=== PATIENT | male | born 1960 | race Caucasian/White ===

== ENCOUNTER 2022-06-07 10:16 | Outpatient (REF) | payer OTHER, SELFPAY ==
--- NOTE | ~2022-06-07 | XR_ITS ---
EXAMINATION: XR CHEST CLINICAL INFORMATION: Acute bronchitis COMPARISON: None TECHNIQUE: 2 views of the chest were obtained. FINDINGS: Status post median sternotomy. Heart size normal. The aorta is mildly unfolded. A small lingular infiltrate is present with obscuration of the left heart border. No other infiltrates or lung masses are seen. No pleural effusions. ACDF hardware noted. XR/XR chest 2V IMPRESSION: Lingular infiltrate consistent with pneumonia.
== END 2022-06-07 10:17 | disposition home or self-care (01) ==
LOC: HO.HMGCX 10:16
PROVIDERS: Visit Provider Internal Medicine
DX: J20.9 Acute bronchitis, unspecified (principal)
CPT/HCPCS: 71046

== ENCOUNTER 2023-11-18 10:32 | Outpatient (AMB) | payer OTHER, SELFPAY ==
--- NOTE | 2023-11-18 11:51 | MHC.OFFWIV ---
Intake Vital Signs 11/18/23 11:56 Height 5 ft 11 in Weight 200 lb BMI 27.9 BP 136/82 Blood Pressure Location Rt brachial Position Sitting Pulse 83 Pulse Source Pulse Oximeter Temp 97.8 F Temp Source Oral Pulse Oximetry (%) 97 Intake Visit Reasons: EP LT Leg pain/Waist-knee Intake Note: pt is here for left leg pain, waist to knee suspects its muscle related Patient Tobacco Use Status: Never used Tobacco Allergies No Known Allergies Allergy (Verified 11/18/23 11:52) Do you need a note to return to daycare/school/sports/work: No HPI HPI Comments History of Present Illness Details 63 y/o male patient who presents to walk in clinic with c/o low back pain, associated with left side sciatica nerve pain. Report pain started ~ 1 week ago, he was on a long Car ride for hours sitting. 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 Denies urinary or bowel symptoms. His PCP @[facility] [place] has ordered Physical therapy for Pt, for low back pain. [facility] Social History Patient Tobacco Use Status: Never used Tobacco Physical Exam Vital Signs: Last Vital Signs Temp 97.8 F 11/18/23 11:56 Pulse 83 11/18/23 11:56 BP 136/82 11/18/23 11:56 Pulse Ox 97 11/18/23 11:56 BMI result Body Mass Index 27.9 Const General: no acute distress; No comfortable Nutritional Appearance: overweight Orientation/consciousness: patient oriented x3 Back/Spine/Pelvis Thoracic/Lumbar Spine: lumbar spinal tenderness Pelvis: buttock tenderness on the left and sciatic notch tenderness Coccyx: Coccyx tenderness present Neuro General: patient oriented x3 Extrem Other: Walks with a slight limp due to pain Right lower extremity: normal to inspection and full ROM Left lower extremity: hip/thigh Details: normal to inspection and tenderness Location: of the mid upper leg; no swelling Psych Speech and movement: Normal speech and movement present Assessment & Plan Assessment & Plan (1) Low back pain: Code(s): M54.50 - Low back pain, unspecified Qualifiers: Chronicity: acute Back pain laterality: midline Sciatica presence: with sciatica Sciatica laterality: sciatica of left side Qualified Code(s): M54.42 - Lumbago with sciatica, left side Plan: Acetaminophen or Ibuprofen for pain relief Muscle relaxants for Spasm Ice/Hot F/U with PT. Medications: New ibuprofen 600 mg PO Q6H PRN 30 tabs 0RF pain M54.42 - Lumbago with sciatica, left side lidocaine 5% leave on most painful area for up to 12 hrs 1 patch topical Q24H 15 ea 0RF M54.42 - Lumbago with sciatica, left side metaxalone 800 mg PO TID 14 tabs 0RF Spasm M54.42 - Lumbago with sciatica, left side Coding Level of Care Code Est Pt Level 3 (46907) Diagnoses Acute midline low back pain with left-sided sciatica M54.42 Chronicity: acute Back pain laterality: midline Sciatica presence: with sciatica Sciatica laterality: sciatica of left side Time Spent (min) 15
[2023-11-18 11:56] VITALS: BP 136/82; PULSE 83; TEMP 36.6; O2SAT 97; BMI 27.9
== END 2023-11-18 12:37 | disposition home or self-care (01) ==
PROVIDERS: Visit Provider Nurse Practitioner Family
DX: M54.42 Lumbago with sciatica, left side (principal)
CPT/HCPCS: 99213